=== PATIENT | male | born 1955 | race Hispanic/Latino ===

== ENCOUNTER → 2023-01-19 | Outpatient (CLI) | payer OTHER | END | disposition home or self-care (01) | LOC: RAH 09:03 | PROVIDERS: ATTEND Internal Medicine | DX: R79.89 Other specified abnormal findings of blood chemistry (principal) | CPT/HCPCS: 76700 ==

== ENCOUNTER → 2024-07-14 | Outpatient (CLI) | payer OTHER, MEDICARE ==
--- NOTE | 2024-07-14 11:54 | HMCIMG ---
Exam Type: US SOFT TISSUE LOWER EXTREMITY Clinical Information: lump of skin Comparison: None Findings and impression: Complex subcutaneous nodule inferior to the right buttocks area of concern, palpable, 2.2 x 1.4 cm, suggestive of an epidermal inclusion cyst. No worrisome lesions.
== END | disposition home or self-care (01) ==
LOC: RAH 11:05
PROVIDERS: ATTEND Internal Medicine
DX: R22.9 Localized swelling, mass and lump, unspecified (principal)
CPT/HCPCS: 76882